=== PATIENT | male | born 1980 | race Caucasian/White ===

== ENCOUNTER 2016-12-29 16:54 | Emergency (ER) | payer MEDICAID ==
[2016-12-29 17:37] VITALS: BMI 28.8
--- NOTE | 2016-12-29 17:39 | C.PDOC ---
History Of Present Illness 36 y/o male presents to ED who reports he has a crown in place in lower teeth, and reports pain in the area for the past several weeks. Patient states he was seen by a dentist for the same complaint, but notes he was not treated because "he cannot speak [place]." Denies fever, chills, headache, nausea, vomiting, throat pain, or other complaints. 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) History/Exam Limitations: no limitations Onset/Duration Of Symptoms: Days Current Symptoms Are (Timing): Still Present Quality: Positive for: "Pain" Recent travel outside of the [place]: No Past Medical History Reviewed: Historical Data, Nursing Documentation, Vital Signs Vital Signs: Last Vital Signs Temp 97.6 F 12/29/16 17:37 Pulse 93 H 12/29/16 17:37 Resp 18 12/29/16 17:37 BP 130/76 12/29/16 17:37 Pulse Ox 100 12/29/16 18:14 - Medical History PMH: No Chronic Diseases Family History: States: Unknown Family Hx Review Of Systems Except As Marked, All Systems Reviewed And Found Negative. Constitutional: Negative for: Fever, Chills ENT: Positive for: Mouth Pain. Negative for: Ear Pain, Throat Pain Respiratory: Negative for: Cough Gastrointestinal: Negative for: Nausea, Vomiting Skin: Negative for: Rash Physical Exam - Physical Exam Appears: Non-toxic, No Acute Distress Skin: Normal Color, Warm, Dry Head: Atraumatic, Normacephalic Eye(s): bilateral: Normal Inspection, PERRL, EOMI Ear(s): Bilateral: Normal Nose: Normal Oral Mucosa: Moist Teeth: No Caries, No Tender To Palpation, No Avulsed, Other (crown in place, 22- 27) Throat: Normal, No Erythema, No Exudate, No Drooling Neck: Supple Neurological/Psych: Oriented x3, Normal Speech, Normal Cognition ED Course And Treatment O2 Sat by Pulse Oximetry: 100 (RA) Pulse Ox Interpretation: Normal Medical Decision Making Medical Decision Making: There are no signs of infection and antibiotics not given. The crown is in place and stable. Patient was instructed to follow up with the dentist within 1- 2days. Disposition - Disposition Referrals: [facility]. [facility] [Outside] Disposition: HOME/ ROUTINE Disposition Time: 17:37 Condition: GOOD Additional Instructions: Follow up with the medical doctor within 1-2 days. Return if worsened. 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 - Scribe Statement The provider has reviewed the documentation as recorded by the Scribe SGAngie All medical record entries made by the Scribe were at my direction and personally dictated by me. I have reviewed the chart and agree that the record accurately reflects my personal performance of the history, physical exam, medical decision making, and the department course for this patient. I have also personally directed, reviewed, and agree with the discharge instructions and disposition.
[2016-12-29 17:42] VITALS: BP 130/76; PULSE 93; RESP 18; TEMP 97.6; O2SAT 100
== END 2016-12-29 18:12 | disposition home or self-care (01) ==
LOC: C.ER 16:54
DX: K08.89 Other specified disorders of teeth and supporting structures (principal)